=== PATIENT | male | born 1990 | race Two or more races ===

== ENCOUNTER 2020-12-03 03:40 | Emergency (ER) | payer OTHER ==
[~2020-12-03] VITALS: Ht 170.2 cm; Wt 72.6 kg
--- NOTE | 2020-12-03 03:58 | NUR ---
ED Nurse Note: Pt walked in from home, pt is ambulatory, walks with a steady gait, vitals are stable on RA, breathing is even and unlabored, able to speak in complete sentances, pt is axox4. Pt states that he fell getting out of a hot tub tonight after drinking "two glasses of whisky." He states that he then fell onto a glass bottle that had broken. Pt has discoloration around his left eye, he has multiple lacerations to his right side. Bleeding is controled.
[2020-12-03] MEDS ORDERED: HYDROcodone/Acetamin 5/325 tab ORAL ONE ×2 (04:00→06:00)
[2020-12-03 04:02] VITALS: BP 132/84
--- NOTE | 2020-12-03 04:11 | Emergency Room Report ---
History of Present Illness General Chief Complaint: Eye Problems Source: Patient Present Illness HPI 30-year-old male with no relevant past medical history here after a fall. Patient said that he was getting out of a hot tub when he slipped and fell in his right lower quadrant of his abdomen struck a broken glass bottle and the left half of his face struck a wooden table. Claims that he never lost consciousness. Denies drugs or alcohol use. No neck pain. No focal numbness or weakness, fevers, chills, chest pain, palpitations, shortness of breath, back pain, abdominal pain, nausea, vomiting, diarrhea, dysuria. Patient believes that he has mildly blurry vision out of his left eye. Last tetanus shot was less than 1 year ago. Allergies: Coded Allergies: No Known Allergies (Unverified , 12/03/20) COVID-19 Screening Contact w/high risk pt: No Experienced COVID-19 symptoms?: No COVID-19 Testing performed [employer]: No Nursing Documentation-[facility] Past Medical History: No Stated History Review of Systems All Other Systems: negative except mentioned in HPI Physical Exam Vital Signs Date Time Temp Pulse Resp B/P (MAP) Pulse Ox O2 Delivery O2 Flow Rate FiO2 12/03/20 03:54 98.1 119 20 133/85 (101) 98 Room Air Sp02 EP Interpretation: reviewed, normal General Appearance: no apparent distress, alert, non-toxic Head: normocephalic, atraumatic Eyes: bilateral eye PERRL, bilateral eye other - Left eye corneal abrasion at 9 o'clock position. Pupils equal and reactive. Mild conjunctival injection left eye ENT: hearing grossly normal, normal pharynx, no angioedema, normal voice Neck: full range of motion, supple/symm/no masses Respiratory: chest non-tender, lungs clear, normal breath sounds, speaking full sentences Cardiovascular #1: regular rate, rhythm, no edema Cardiovascular #2: 2+ carotid (R), 2+ carotid (L), 2+ radial (R), 2+ radial (L), 2+ dorsalis pedis (R), 2+ dorsalis pedis (L) Gastrointestinal: normal bowel sounds, non tender, soft, non-distended, no guarding, no rebound Rectal: deferred Genitourinary: normal inspection, no CVA tenderness Musculoskeletal: back normal, normal range of motion, gait/station normal, non- tender Neurologic: alert, motor strength/tone normal, oriented x3, sensory intact, responsive, speech normal Psychiatric: judgement/insight normal, memory normal, mood/affect normal, no suicidal/homicidal ideation Skin: other - Multiple small superficial lacerations right flank. No active bleeding Lymphatic: no adenopathy Procedures Laceration/Wound Repair Laceration/Wound Repair : Consent: Emergent Wound Location: other - Right flank Wound Explored: clean Wound Repaired With: Dermabond Progress Multiple small superficial lacerations right flank. Repaired with Dermabond Medical Decision Making Diagnostic Impression: Primary Impression: Corneal abrasion Additional Impressions: Laceration Orbital floor fracture ER Course CT facial bones: IMPRESSION: 1. Left orbital floor fracture. There appears to be minimal inferior and medial retraction of the inferior rectus muscle-recommend correlation with clinical findings to assess for entrapment. 2. Fracture medial wall left orbit. CT head: No acute intracranial abnormalities X-ray abdomen: Normal abdominal x-ray. No foreign body 30-year-old male here after mechanical fall. Patient landed on a glass bottle on his right flank resulting in multiple superficial lacerations. X-ray of the area did not reveal any foreign bodies. Lacerations were irrigated with saline. No foreign bodies appreciated. Lacerations were repaired with Dermabond as described above. On fluorescein examination patient had left eye corneal abras ion. He does wear contacts. He was given a prescription for moxifloxacin eyedrops. Patient did not have his contact lens in his left eye, but did have a contact lens in his right eye. Visual acuity 20/200 left eye and 20/30 right eye, 20/30 both eyes. This is expected given that he was not wearing his contact lens in his left eye. Pupils were equal and reactive and he had normal extraocular movements. Negative Damian sign. No concern for globe rupture. CT head unremarkable. CT facial bones show orbital floor fracture and medial wall left orbit fracture. There was concern of minimal inferior medial retraction of the inferior rectus muscle. However patient had normal extraocular movements and had no diplopia of upward gaze. Patient lives in the [facility] and says he is going back to the [place] area later this morning. He has a follow-up appointment with his primary care physician later this week. Was given information to follow-up with ophthalmology but said that he will follow-up with his primary care physician and go to referral appointment if necessary. Given prescription for Keflex. Told to return with any worsening symptoms. He expressed understanding and was discharged. Last Vital Signs Date Time Temp Pulse Resp B/P (MAP) Pulse Ox O2 Delivery O2 Flow Rate FiO2 12/03/20 04:02 98.0 117 18 132/84 98 Room Air Scripts Hydrocodone/Acetaminophen 7.5-325* (HYDROCODON-ACETAMINOPH 7.5-325*) 1 Each Tablet 1 TAB ORAL Q6H, #10 TAB Prov: Tono Sarmiento M.D. 12/03/20 Cephalexin* (KEFLEX*) 500 Mg Capsule 500 MG ORAL EVERY 12 HOURS, #14 CAP 0 Refills Prov: Tono Sarmiento M.D. 12/03/20 Moxifloxacin HCl (Vigamox) 3 Ml Drops 1 DROP LEFT EYE FOUR TIMES A DAY for 5 Days, #3 ML 0 Refills Prov: Tono Sarmiento M.D. 12/03/20 Referrals: NON PHYSICIAN (PCP) Tono Sarmiento M.D. Dec 03, 2020 04:11
--- NOTE | 2020-12-03 04:29 | NUR ---
ED Nurse Note: pt refusing norco. ER aware
--- NOTE | 2020-12-03 04:35 | NUR ---
ED Nurse Note: Pt left for CT
[2020-12-03] MEDS ORDERED: GARAMYCIN 0.3%1 DROP LEFT EYE (04:48)
[2020-12-03] MEDS ORDERED: VIGAMOX1 DROP LEFT EYE (04:49)
--- NOTE | 2020-12-03 05:15 | NUR ---
ED Nurse Note: pt back from CT
--- NOTE | 2020-12-03 05:27 | Diagnostic Imaging Report ---
EXAM: XR Abdomen, 2 Views CLINICAL HISTORY: PAIN TECHNIQUE: Frontal view of the abdomen/pelvis with upright view of the abdomen. COMPARISON: No relevant prior studies available. FINDINGS: Intraperitoneal space: No free air. Gastrointestinal tract: Unremarkable. No dilation. Bones/joints: Unremarkable. IMPRESSION: Normal abdominal x-rays.
--- NOTE | 2020-12-03 05:34 | NUR ---
ED Nurse Note: PT is resting comfortably breathing is even and unlabored, pt co of pain but is refusing pain medication, resource agent irrigated wounds on abdomen, ER MD at bedside.
--- NOTE | 2020-12-03 05:36 | Diagnostic Imaging Report ---
EXAM: CT Head Without Intravenous Contrast CLINICAL HISTORY: FALL TECHNIQUE: Axial computed tomography images of the head/brain without intravenous contrast. CTDI is 53.4 mGy and DLP is 1045.5 mGy-cm. One or more of the following dose reduction techniques were used: automated exposure control, adjustment of the mA and/or kV according to patient size, use of iterative reconstruction technique. COMPARISON: No relevant prior studies available. FINDINGS: Brain: Unremarkable. No hemorrhage. No significant white matter disease. No edema. Ventricles: Unremarkable. No ventriculomegaly. Bones/joints: There is slight deformity of the left lamina papyracea consistent with fracture. There is a left orbital floor fracture. Soft tissues: Unremarkable. Sinuses: There is moderate opacification of the left ethmoid sinus. There is minimal mucosal thickening in the right ethmoid and bilateral frontal sinuses. Mastoid air cells: Unremarkable as visualized. No mastoid effusion. IMPRESSION: 1. No acute intracranial abnormality. 2. Left orbital fractures-please see the report of CT facial bones for details.
[2020-12-03] MEDS ORDERED: CEPHALEXIN500 MG ORAL (05:40)
--- NOTE | 2020-12-03 05:42 | Diagnostic Imaging Report ---
EXAM: CT Maxillofacial Without Intravenous Contrast CLINICAL HISTORY: FALL TECHNIQUE: Axial computed tomography images of the face without intravenous contrast. CTDI is 15.3 mGy and DLP is 384.3 mGy-cm. One or more of the following dose reduction techniques were used: automated exposure control, adjustment of the mA and/or kV according to patient size, use of iterative reconstruction technique. COMPARISON: No relevant prior studies available. FINDINGS: There is fracture of the medial wall of the left orbit with hemorrhage in the adjacent left ethmoid air cells. There is fracture through the left orbital floor with depression of fragments up to 8 mm. There is a small amount of hemorrhage in the left maxillary sinus. Left globe is intact. There is no intraorbital hematoma. There is displacement of intraorbital fat through the left orbital floor fracture. The left inferior rectus muscle appears to be minimally retracted inferiorly and medially. There is a relatively nondisplaced fracture right side of the nasal bone. This is of indeterminate age as there is no evidence of overlying soft tissue swelling. IMPRESSION: 1. Left orbital floor fracture. There appears to be minimal inferior and medial retraction of the inferior rectus muscle-recommend correlation with clinical findings to assess for entrapment. 2. Fracture medial wall left orbit.
[2020-12-03] MEDS ORDERED: HYDROCODON-ACE1 EA16 ORAL (05:52)
--- NOTE | 2020-12-03 05:54 | NUR ---
ED Nurse Note: Md at bedside discussing diagnosis and plan of care, pt has orbital fracture and cornea scratch, clean,dry eye patch applied with paper tape and pt shown how to re-apply and given supplies, pt also states he wants pain meds he refused earlier, will medicate as ordered and prepare for discharge to home, pt has family member to drive.
[2020-12-03 06:03] VITALS: BP 129/82
--- NOTE | 2020-12-03 06:04 | NUR ---
ER DISCHARGE NOTE: Patient is cleared to be discharged per ERMD, pt is aox4, on room air, with stable vital signs. pt was given dc and prescription instructions, pt was able to verbalize understanding, pt id band and iv site removed without complications. pt is able to ambulate with steady gait. pt took all belongings. pt left in a private vehicle.
== END 2020-12-03 06:06 | disposition home or self-care (01) ==
LOC: EMR 03:59
DX: S05.02XA Injury of conjunctiva and corneal abrasion without foreign body, left eye, initial encounter (principal); S02.32XA Fracture of orbital floor, left side, initial encounter for closed fracture; S31.119A Laceration without foreign body of abdominal wall, unspecified quadrant without penetration into peritoneal cavity, initial encounter; S02.2XXA Fracture of nasal bones, initial encounter for closed fracture; W18.2XXA Fall in (into) shower or empty bathtub, initial encounter; Y92.9 Unspecified place or not applicable
CPT/HCPCS: 70450; 70486; 74018; 99284